=== PATIENT | male | born 1960 | race Two or more races ===

== ENCOUNTER → 2024-12-04 | Outpatient (CLI) | payer MEDICARE, MEDICAID, SELFPAY ==
[2024-12-04 14:37] LABS: Anion Gap 9 (7-16); BUN/Creatinine Ratio 17 Ratio (12-20); Blood Urea Nitrogen 26 mg/dL (9-23); Calcium 9.3 mg/dL (8.3-10.6); Carbon Dioxide 24.1 mMol/L (20.0-31.0); Chloride 108 mMol/L (98-107); Creatinine (Component) 1.5 mg/dL (0.6-1.3); Glucose 108 mg/dL (74-106); Osmolality,Calculated 286 (275-295); Sodium 141 mMol/L (136-145); eGFR 51 See Note
== END | disposition home or self-care (01) ==
LOC: SLDO 13:21
PROVIDERS: Referring Provider Family Medicine; Visit Provider Family Medicine
DX: T84.51XD Infection and inflammatory reaction due to internal right hip prosthesis, subsequent encounter (principal); Y79.2 Prosthetic and other implants, materials and accessory orthopedic devices associated with adverse incidents; Y83.8 Other surgical procedures as the cause of abnormal reaction of the patient, or of later complication, without mention of misadventure at the time of the procedure
CPT/HCPCS: 36415; 80048

== ENCOUNTER → 2024-12-18 | Outpatient (CLI) | payer MEDICARE, MEDICAID, SELFPAY ==
[2024-12-18 13:33] LABS: Basophils # (Auto) 0.1 Thou/mm3 (0.0-0.2); Basophils % (Auto) 1 % (0-2.5); Eosinophils # (Auto) 0.3 Thou/mm3 (0.0-0.5); Eosinophils % (Auto) 5 % (0-10); Hematocrit 26.9 % (41.0-53.0); Immature Granulocytes % (Auto) 1 % (0-0); Immature Granulocytes Auto 0.04 Thou/mm3 (0.00-0.00); Lymphocytes # (Auto) 1.8 Thou/mm3 (1.0-4.8); Lymphocytes % (Auto) 26 % (10-50); Mean Corpuscular HGB Conc 32.7 g/dl (31.0-37.0); Mean Corpuscular Hemoglobin 28.7 pg (25.0-35.0); Mean Corpuscular Volume 88 fL (80-100); Monocytes # (Auto) 0.5 Thou/mm3 (0.0-0.8); Monocytes % (Auto) 7 % (0-12); Neutrophils # (Auto) 4.2 Thou/mm3 (1.8-7.7); Neutrophils % (Auto) 60 % (37-80); Nucleated Red Blood Cell % 0 /100 WBC (0); Platelet Count 381 Thou/mm3 (140-440); RDW Standard Deviation 52.8 fL (35.1-43.9); Red Blood Count 3.07 Miln/mm3 (4.50-5.90); White Blood Count 6.9 Thou/mm3 (3.8-10.6)
[2024-12-18 13:50] LABS: Hemoglobin 8.8 g/dL (13.5-16.0)
[2024-12-18 13:52] LABS: Alanine Aminotransferase 20 U/L (10-49); Albumin/Globulin Ratio 1.4 (1.2-2.2); Alkaline Phosphatase 96 U/L (46-116); Anion Gap 8 (7-16); Aspartate Amino Transferase 18 U/L (0-34); BUN/Creatinine Ratio 18 Ratio (12-20); Bilirubin,Total 0.2 mg/dL (0.3-1.2); Blood Urea Nitrogen 22 mg/dL (9-23); C-Reactive Protein < 0.5 mg/dL (0.0-0.9); Calcium 8.9 mg/dL (8.3-10.6); Calcium (Corrected) 8.9 mg/dL (8.5-10.1); Carbon Dioxide 25.5 mMol/L (20.0-31.0); Chloride 110 mMol/L (98-107); Creatinine (Component) 1.2 mg/dL (0.6-1.3); Globulin 2.9 gm/dL (2.3-3.5); Glucose 71 mg/dL (74-106); Osmolality,Calculated 286 (275-295); Sodium 143 mMol/L (136-145); Total Protein 6.9 gm/dL (5.7-8.2); eGFR > 60 See Note
== END | disposition home or self-care (01) ==
PROVIDERS: Referring Provider Orthopaedic Surgery; Visit Provider Orthopaedic Surgery
DX: I11.0 Hypertensive heart disease with heart failure (principal); I50.22 Chronic systolic (congestive) heart failure
CPT/HCPCS: 36415; 80053; 85025; 86140

== ENCOUNTER → 2025-01-03 | Outpatient (CLI) | payer MEDICARE, MEDICAID, SELFPAY ==
[2025-01-03 13:39] LABS: Albumin, Serum 4.1 gm/dL (3.4-4.8); Anion Gap 8 (7-16); BUN/Creatinine Ratio 15 Ratio (12-20); Blood Urea Nitrogen 20 mg/dL (9-23); Calcium 8.8 mg/dL (8.3-10.6); Calcium (Corrected) 8.8 mg/dL (8.5-10.1); Carbon Dioxide 26.4 mMol/L (20.0-31.0); Chloride 109 mMol/L (98-107); Creatinine (Component) 1.3 mg/dL (0.6-1.3); Glucose 116 mg/dL (74-106); Osmolality,Calculated 288 (275-295); Phosphorous 4.3 mg/dL (2.4-5.1); Potassium 5.4 mMol/L (3.4-5.1); Sodium 143 mMol/L (136-145); eGFR > 60 See Note
== END | disposition home or self-care (01) ==
LOC: SLDO 12:37
PROVIDERS: PCP Orthopaedic Surgery; Referring Provider Orthopaedic Surgery; Visit Provider Orthopaedic Surgery
DX: E78.5 Hyperlipidemia, unspecified (principal)
CPT/HCPCS: 36415; 80069

== ENCOUNTER 2025-04-25 09:00 | Outpatient (RCR) | payer MEDICARE, MEDICAID, SELFPAY ==
--- NOTE | 2025-04-15 10:49 | PT.OIERPT ---
PT OP Initial Eval Patient Information Outpatient Physical Therapy Treatment Date: 04/15/25 Visit Reasons: s/p right revision JOSÉ LUIS Medical Diagnosis: Right Hip Pain Treatment Dx #1: Right Hip Mobility Deficits Treatment Dx #2: Right Hip Weakness Smoking Status Smoking Status: Never smoker Initial Assessment Subjective: Pt is a 65 y/o male s/p right hip replacement revision 02/07/25 due to infection. Pt still has pain (6/10) with activities. Pt has limitation with standing, walking, balance, chores, self care, squatting, getting in/out of the truck, and recreational activities. Objective: Right Hip AROM Flexion: 90 deg Abduction: 30 deg Extension: 10 deg ER and IR: NT Right Hip MMTs: grossly 3/5 Active SLR: 45 deg Gait Observation: antalgic gait SLS: unable Assessment: Pt demonstrate right hip mobility and strength deficits s/p hip replacement revision leading to difficulty with ADLs. Pt will benefit from physical therapy to increase ROM, strength, and work on stability Short Term and Ancillary Services Manager Therapy Goals 1) Increase right hip AROM WFL in 12 wks to be able to perform chores 2) Increase right hip MMTs grossly to 4-/5 in 12 wks to be able to walk more than 30 mins 3) Decrease right hip pain to 2/10 in 12 wks to be able to stand more than 30 mins 4) Increase SLS 10 15 sec in 12 wks to be able to perform self care activities 5) Indep with HEP Treatment Plan 1) Manual Therapy 2) Therapeutic Activities 3) Therapeutic Exercises 4) Modalities (ice, heat) 5) Balance Training 6) Gait Training Frequency and Duration: 2 x wk for 12 wks Certification Dates: 04/15/25 to 07/16/25 Procedure Charges OP PT Eval Mod Complex 30 minutes: Yes
--- NOTE | 2025-04-22 09:26 | PT.ODAYNRPT ---
PT Outpatient Daily Note OP Daily Note Outpatient Physical Therapy Treatment Date: 04/22/25 Visit Reasons: s/p right revision JOSÉ LUIS Subjective: Pt's hip is sore and ache. Pt mentioned he's walking more with less limitation. Objective: Please see flow chart for list of ther ex performed Assessment: tolerate exercises with minimal pain; difficulty with sitting marches due to hip flexor weakness Plan: Continue with PT Length of Time (minutes) of Treatment: 30 Minutes Procedure Charges Therapeutic Exercise 30 minutes: Yes
--- NOTE | 2025-04-25 10:52 | PT.ODAYNRPT ---
PT Outpatient Daily Note OP Daily Note Outpatient Physical Therapy Treatment Date: 04/25/25 Visit Reasons: s/p right revision JOSÉ LUIS Subjective: Pt's hip is sore after last session. Pt continues to have stiff in the morning and when he starts walking from a sitting position Objective: Please see flow chart for list of ther ex performed Assessment: progressing patient to more closed chain exercises with good tolerance Plan: Continue with PT Length of Time (minutes) of Treatment: 30 Minutes Procedure Charges Therapeutic Exercise 30 minutes: Yes
== END 2025-04-27 23:59 | disposition home or self-care (01) ==
LOC: CPTX 09:00
PROVIDERS: PCP Family Medicine; Referring Provider Student in an Organized Health Care Education/Training Program; Visit Provider Student in an Organized Health Care Education/Training Program
DX: M25.551 Pain in right hip (principal); R53.1 Weakness; R26.2 Difficulty in walking, not elsewhere classified; R26.89 Other abnormalities of gait and mobility; Z96.641 Presence of right artificial hip joint
CPT/HCPCS: 97110; 97162

== ENCOUNTER 2025-05-26 09:30 | Outpatient (RCR) | payer MEDICARE, MEDICAID, SELFPAY ==
--- NOTE | 2025-04-29 09:58 | PT.ODAYNRPT ---
PT Outpatient Daily Note OP Daily Note Outpatient Physical Therapy Treatment Date: 04/29/25 Visit Reasons: s/p right revision JOSÉ LUIS Subjective: Pt's hip is sore. Pt mentioned walking is getting easier. Pt still has difficulty getting in/out of the truck Objective: Please see flow chart for list of ther ex performed Assessment: added resistance band to monster and side step exercises today. Pt demonstrate good form and control, however, fatigue towards the end of the reps Plan: Continue with PT Length of Time (minutes) of Treatment: 30 Minutes Procedure Charges Therapeutic Exercise 30 minutes: Yes
--- NOTE | 2025-05-06 11:15 | PT.ODAYNRPT ---
PT Outpatient Daily Note OP Daily Note Outpatient Physical Therapy Treatment Date: 05/06/25 Visit Reasons: s/p right revision JOSÉ LUIS Subjective: Pt reports hip is doing ok but has been having high pain with L side of l/s. Objective: Please see flow sheet for ther ex list. Assessment: Near end of session pt limping due to c/o L hip pain and L pain in lateral l/s. Pt denied cold pack, mentioned he would ice at home. Plan: Continue with poC. Length of Time (minutes) of Treatment: 30 Minutes Procedure Charges Therapeutic Exercise 30 minutes: Yes
--- NOTE | 2025-05-08 10:08 | PT.ODAYNRPT ---
PT Outpatient Daily Note OP Daily Note Outpatient Physical Therapy Treatment Date: 05/08/25 Visit Reasons: s/p right revision JOSÉ LUIS Subjective: Pt states he is doing well and denies pain to Rt hip. Objective: See F/S for therex Assessment: Tolerated therex well with appropriate fatigue. Required minimal verbal cues to maintain trunk control with resisted lateral steps. Plan: Continue with POC Length of Time (minutes) of Treatment: 30 Minutes Procedure Charges Therapeutic Exercise 30 minutes: Yes
--- NOTE | 2025-05-13 10:16 | PTNOTE_ITS ---
PT Outpatient Daily Note OP Daily Note Outpatient Physical Therapy Treatment Date: 05/13/25 Visit Reasons: s/p right revision JOSÉ LUIS Subjective: Pt reports he is tired today and c/o back feeling stiff, did not sleep well last night. Objective: Please see flow sheet for ther ex list. Assessment: Verbal cues to avoid trunk lateral flexion with lateral stepping exercise. Plan: Contiue with poC. Length of Time (minutes) of Treatment: 30 Minutes VENDING MACHINE REPAIRER Service Modifier Method I: Divide the number of min of care provided by the VENDING MACHINE REPAIRER/SANYA by the total min of care provided then multiply by 100. If greater than 11 percent modifier is required. Method II: Divide the total time of care provided to patient by 10 (round to the nearest whole number) and add 1 min. to set the minimum time requirement. If treatment total was 60 min., then 10% of 6 min PT CQ modifier applied: CQ Modifier applied Procedure Charges Therapeutic Exercise 30 minutes: Yes
--- NOTE | 2025-05-15 10:44 | PTNOTE_ITS ---
PT Outpatient Daily Note OP Daily Note Outpatient Physical Therapy Treatment Date: 05/15/25 Visit Reasons: s/p right revision JOSÉ LUIS Subjective: Pt c/o being sore al over today, mentioned that he worked on his car yesterday so back hips and legs are sore. Objective: Please see flow sheet for ther ex list. Assessment: Pt demonstrates forward trunk flexion with hip extension, compensates for tight hip flexors on R hip, cues to stand erect with spine in neutral. Plan: Continue with poC. Length of Time (minutes) of Treatment: 30 Minutes MANUFACTURING ENGINEER AUTOMOTIVE Service Modifier Method I: Divide the number of min of care provided by the MANUFACTURING ENGINEER AUTOMOTIVE/GLOVE FACTORY SEWER by the total min of care provided then multiply by 100. If greater than 11 percent modifier is required. Method II: Divide the total time of care provided to patient by 10 (round to the nearest whole number) and add 1 min. to set the minimum time requirement. If treatment total was 60 min., then 10% of 6 min PT CQ modifier applied: CQ Modifier applied Procedure Charges Therapeutic Exercise 30 minutes: Yes
--- NOTE | 2025-05-21 09:44 | PT.ODS1RPT ---
PT OP Progress/Discharge Note Date of Service: 05/21/25 Progress Note/DC Note Progress Note/Discharge Note: Progress Note Patient Information Visit Reasons: s/p right revision JOSÉ LUIS Medical Diagnosis: Right Hip Pain Treatment Dx #1: Right Hip Mobility Deficits Treatment Dx #2: Right Hip Weakness Service Continue Service or Discharge: Continue Service Certification Date Certification Dates: 05/21/25 to 08/20/25 Status Subjective: Pt's hip still feels stiff but has he walks; the hip feels better. Pt has been able to stand, walk longer, get in/out of his truck. Pt still has limitation with balance, single limb activities, and performing recreational activities. Objective: Right Hip AROM Flexion: 92 deg Abduction: 40 deg Extension: 15 deg ER and IR: NT RIght Hip MMTs: grossly 3+/5 Active SLR: 70 deg SLS: 5 sec Assessment: Pt is progressing with right hip mobility and strength allowing him to ambulate, stand, perform chores, and light ADLs around the house with less limitation. Pt has not met set goals and will continue to benefit from physical therapy; thank you for your referrals. Plan: Continue with PT/POC Procedure Charges Therapeutic Exercise 30 minutes: Yes
--- NOTE | 2025-05-26 11:45 | PT.ODAYNRPT ---
PT Outpatient Daily Note OP Daily Note Outpatient Physical Therapy Treatment Date: 05/26/25 Visit Reasons: s/p right revision JOSÉ LUIS Subjective: Pt was fatigue after he walked up and down a hill near his house. Pt notice hip stiffness has been improving lately. Objective: Please see flow chart for list of ther ex performed Assessment: improving with hip control and form with side step and monster walk exercises. Pt demonstrate ability to WB more on 4 step up and lateral step up exercises. Pt will attempt 6 next session and form will be checked. Plan: Continue with PT Length of Time (minutes) of Treatment: 30 Minutes Procedure Charges Therapeutic Exercise 30 minutes: Yes
== END 2025-05-27 23:59 | disposition home or self-care (01) ==
LOC: CPTX 09:30
PROVIDERS: PCP Student in an Organized Health Care Education/Training Program; Referring Provider Student in an Organized Health Care Education/Training Program; Visit Provider Student in an Organized Health Care Education/Training Program
DX: M25.551 Pain in right hip (principal); M25.651 Stiffness of right hip, not elsewhere classified; R26.2 Difficulty in walking, not elsewhere classified; R26.89 Other abnormalities of gait and mobility; R53.1 Weakness; Z47.1 Aftercare following joint replacement surgery; Z96.641 Presence of right artificial hip joint
CPT/HCPCS: 97110

== ENCOUNTER 2025-06-18 10:00 | Outpatient (RCR) | payer MEDICARE, MEDICAID, SELFPAY ==
--- NOTE | 2025-06-03 09:35 | PT.ODAYNRPT ---
PT Outpatient Daily Note OP Daily Note Outpatient Physical Therapy Treatment Date: 06/03/25 Visit Reasons: right hip surgery Subjective: Pt reports hip is feeling better today. Objective: Please see flow sheet for ther ex list. Assessment: Interventions given alternating sitting and standing to maximize participation. Plan: Assess for note. Length of Time (minutes) of Treatment: 30 Minutes LEVI MAKER Service Modifier Method I: Divide the number of min of care provided by the LEVI MAKER/LEARNING DISABLED TEACHER by the total min of care provided then multiply by 100. If greater than 11 percent modifier is required. Method II: Divide the total time of care provided to patient by 10 (round to the nearest whole number) and add 1 min. to set the minimum time requirement. If treatment total was 60 min., then 10% of 6 min PT CQ modifier applied: CQ Modifier applied Procedure Charges Therapeutic Exercise 30 minutes: Yes
--- NOTE | 2025-06-12 10:48 | PT.ODAYNRPT ---
PT Outpatient Daily Note OP Daily Note Outpatient Physical Therapy Treatment Date: 06/12/25 Visit Reasons: right hip surgery Subjective: Pt's hip feels good. Pt seen surgeon and was release from his care. Surgeon wants patient to finish PT session. Objective: Please see flow chart for list of ther ex performed Assessment: frequent standing rest breaks today with monster and side step exercises due to fatigue. Pt demonstrate improvement with step up and lateral step up exercises with more WB coming up the step. Pt will be advance to 6 step next session Plan: Continue with PT Length of Time (minutes) of Treatment: 30 Minutes Procedure Charges Therapeutic Exercise 30 minutes: Yes
--- NOTE | 2025-06-18 10:18 | PT.ODS1RPT ---
PT OP Progress/Discharge Note Date of Service: 06/18/25 Progress Note/DC Note Progress Note/Discharge Note: DC Note Patient Information Visit Reasons: right hip surgery Medical Diagnosis: Right Hip Pain Treatment Dx #1: Right Hip Mobility Deficits Treatment Dx #2: Right Hip Weakness Service Discharge Date: 06/18/25 Status Subjective: Pt's hip feels good. Pt has been able to stand, walk, perform chores, drive, and recreational activities with minimal limitation. Pt feels comfortable being release from physical therapy. Objective: Right Hip AROM Flexion: 95 deg Abduction: 45 deg Extension: 20 deg ER and IR: WFL Right Hip MMTs: grossly 4-/5 Active SLR: 90 deg SLS: 8 sec Assessment: Pt demonstrate functional right hip mobility and strength allowing him to resume ADLs, ambulate, and recreational activities with minimal limitation. Pt has completed authorized sessions and met most goals set in therapy. Pt will be d/c from care with HEP to continue at home. Pt was instructed on HEP last session and educated to continue exercises to maintain overall mobility. Pt performed all exercises safely, thank you for your referrals. Plan: D/C home with HEP and follow up with MD ALFRED Procedure Charges Therapeutic Exercise 15 minutes: Yes
== END 2025-06-27 23:59 | disposition home or self-care (01) ==
LOC: CPTX 10:00
PROVIDERS: PCP Student in an Organized Health Care Education/Training Program; Referring Provider Student in an Organized Health Care Education/Training Program; Visit Provider Student in an Organized Health Care Education/Training Program
DX: M25.551 Pain in right hip (principal); R53.1 Weakness; R26.2 Difficulty in walking, not elsewhere classified; R26.89 Other abnormalities of gait and mobility; M76.11 Psoas tendinitis, right hip; Z96.641 Presence of right artificial hip joint; Z98.890 Other specified postprocedural states
CPT/HCPCS: 97110